=== PATIENT | female | born 1995 | race Two or more races ===

== ENCOUNTER 2016-11-05 19:59 | Emergency (ER) | payer MEDICAID, SELFPAY ==
[~2016-11-05] VITALS: Ht 162.6 cm; Wt 84.9 kg
[2016-11-05 20:02] VITALS: BP 125/87
== END 2016-11-05 21:37 | disposition home or self-care (01) ==
LOC: ED 21:31
DX: B34.9 Viral infection, unspecified (principal)
CPT/HCPCS: 71020; 99284